=== PATIENT | male | born 1940 | race Two or more races ===

== ENCOUNTER 2016-10-08 07:39 | Day surgery (SDC) | payer MEDICARE, OTHER ==
[~2016-10-08] VITALS: Ht 162.6 cm; Wt 78.0 kg
[2016-10-08] VITALS (9 sets, daily range): BP systolic 121–150; BP diastolic 68–94
[~2016-10-08 07:39] MED LIST: ASPIR 8181 MG ORAL; AVODART0.5 MG ORAL; LR 1000ml 1,000 ML IVLG SCH; OMEPRAZOLE40 M1 ORAL; RANITIDINE HCL150 MG ORAL; STOOL SOFTENER250 MG PO; TAMSULOSIN HCL0.4 MG ORAL; TRICOR145 MG ORAL; UROXATRAL10 MG ORAL
--- NOTE | 2016-10-08 07:53 | Short Stay Surgery H&P ---
History of Present Illness History of Present Illness Chief Complaint History of GERDs, colon polyps/abdominal pains HPI Zane Alcantar is a 76 year old male who was admitted on for Abdominal Pain/colon polyps. Patient History Allergies: Coded Allergies: No Known Allergies (Unverified , 03/23/13) PAST MEDICAL HISTORY: (1) Hyperlipidemia Past Surgeries: Social History: Medication History Scheduled Aspirin* (Aspir 81*), 81 MG ORAL DAILY, (Reported) Dutasteride (Avodart), 0.5 MG ORAL DAILY, (Reported) Omeprazole (Omeprazole), 40 MG ORAL DAILY, (Reported) Ranitidine Hcl* (Zantac*), 300 MG ORAL DAILY, (Reported) Tamsulosin Hcl (Tamsulosin Hcl*), 0.4 MG ORAL BEDTIME, (Reported) Discontinued Medications Alfuzosin 10Mg (Uroxatral), 10 MG ORAL DAILY, (Reported) Discontinued Reason: Pt stopped taking med Docusate Sodium (Stool Softener), 250 MG PO DAILY, (Reported) Discontinued Reason: Pt stopped taking med Fenofibrate (Tricor), 145 MG ORAL DAILY, (Reported) Discontinued Reason: Pt stopped taking med Review of Systems Cardiovascular: Reports: no symptoms Respiratory: Reports: no symptoms Skeletal: Reports: no symptoms Gastrointestinal: Reports: gastro esophageal reflux disease Genitourinary: Reports: no symptoms Neurologic: Reports: no symptoms Endocrine: Reports: no symptoms Hematologic: Reports: no symptoms Physical Exam Skin: normal HENT: normal Heart: normal Lungs: normal Abdomen: normal Extremities: normal Genitourinary: normal Plan Plan of Care Upper and lower GI endoscopy Preop Interventions None. Summary of Findings See the reports. Final Diagnosis: Attestation Are the patient's medical conditions optimized for surgery? Attestation Response: yes SETH DOAN October 08, 2016 07:53
--- NOTE | 2016-10-08 07:54 | Pre-Procedure Note/Attestation ---
Pre-Procedure Note/Attestation Complete Prior to Procedure Planned Procedure: left Procedure Narrative: Endoscopic examination of the upper and lower GI. Indications for Procedure Pre-Operative Diagnosis: R/O Peptic ulcer/gastritis/colon polyp. Attestation I attest that I discussed the nature of the procedure; its benefits; risks and complications; and alternatives (and the risks and benefits of such alternatives ), prior to the procedure, with the patient (or the patient's legal parts counter representative). I attest that, if there was a reasonable possibility of needing a blood transfusion, the patient (or the patient's legal parts counter representative) was given the [place] [employer] [facility] standardized written summary, pursuant to the [place] Blood Safety Act ([place] Health and Safety Code # 1645, as amended). I attest that I re-evaluated the patient just prior to the surgery and that there has been no change in the patient's H&P, except as documented below: OLIMPIA,SAID October 08, 2016 07:54
[2016-10-08] MEDS ORDERED: LR 1000ml ONE (08:00)
[2016-10-08] MEDS ORDERED: Propofol 10mg/ml 20ml IV ONE (08:00)
--- NOTE | 2016-10-08 08:29 | Anethesia Preoperative Eval ---
Anesthesia Pre-op PMH/ROS General Date of Evaluation: October 08, 2016 Time of Evaluation: 08:15 Anesthesiologist: percy ASA Score: ASA 2 Mallampati Score Class I : Soft palate, uvula, fauces, pillars visible Class II: Soft palate, uvula, fauces visible Class III: Soft palate, base of uvula visible Class IV: Only hard plate visible Mallampati Classification: Class II Surgeon: anna Diagnosis: GRD, hx colon polyps Surgical Procedure: EGD,colonoscopy Anesthesia History: none Allergies: Coded Allergies: No Known Allergies (Unverified , 03/23/13) Past Medical History Gastrointestinal/Genitourinary: Reports: GERD, other - s/p choley Anesthesia Pre-op Phys. Exam Physician Exam Last Vital Signs Date Time Temp Pulse Resp B/P Pulse Ox O2 Delivery O2 Flow Rate FiO2 10/08/16 08:10 98.7 72 18 150/94 97 Room Air Airway Exam Mallampati Score: Class II Teeth: missing Anesthesia Pre-op A/P Risk Assessment & Plan Plan: propofol Status Change Before Surgery: Valentin Mcdonough MD October 08, 2016 08:29
--- NOTE | 2016-10-08 08:29 | Immediate Post-Op Evaluation ---
Immediate Post-Op Evalulation Immediate Post-Op Evalulation Date of Evaluation: October 08, 2016 Time of Evaluation: 09:00 IV Fluids: 500 Blood Pressure Systolic: 114 Blood Pressure Diastolic: 71 Pulse Rate: 60 Respiratory Rate: 20 O2 Sat by Pulse Oximetry: 100 Temperature (Fahrenheit): 97.1 Pain Score (1-10): 0 Nausea: No Vomiting: No Complications none Patient Status: awake, patent, none Hydration Status: adequate Valentin Brasher MD October 08, 2016 08:29
--- NOTE | 2016-10-08 08:31 | 48 Hour Post Anesthesia Eval ---
Post Anesthesia Evaluation Date of Evaluation: October 08, 2016 Time of Evaluation: 09:30 Blood Pressure Systolic: 130 0: 78 Pulse Rate: 63 Respiratory Rate: 18 Temperature (Fahrenheit): 98.7 O2 Sat by Pulse Oximetry: 97 Airway: patent Nausea: No Vomiting: No Pain Intensity: 0 Hydration Status: adequate Cardiopulmonary Status: stable Mental Status/LOC: patient returned to baseline Follow-up Care/Observations: n/a Post-Anesthesia Complications: tolerated well Follow-up care needed: ready to discharge Valentin Brasher MD October 08, 2016 08:31
[2016-10-08] MEDS ORDERED: LR 1000ml 1,000 ML IVLG SCH (08:44)
--- NOTE | 2016-10-08 08:48 | Endoscopy Procedure Note ---
Endoscopy Procedure Note Indication for Procedure: GERDs anad abdominal pains and history of colon polyp Procedures Performed: EGD - Small Hiatal Hernia otherwise completely normal upper GI endoscopy, biopsy was done per random from the gastric body., colonoscopy - Minimal internal hemorrhoids and highly redundant spastic colon with poor prep. A 3mm flat diminutive polypoid lesion removed by cold biopsy forceps from hepatic flexure. Exam was done upto the base of the cecum. Specimen: yes Pt Tolerated Procedure Well: Yes Estimated Blood Loss: none Anesthesiologist: Dr. Barlow Anesthesia: moderate sedation Medication Given: see anesthesia record Implant(s) used?: No 50 yrs or older w/o bx or poly: Yes 10yrs. F/U not recommended: Yes If not recommended, why?: 18 years or older w/prev. colo: No <3yrs. since last colonoscopy: No Med reason:<3 yrs.: System Reason:<3 yrs.: SETH DOAN October 08, 2016 08:48
--- NOTE | 2016-10-08 08:49 | Discharge Instructions ---
Discharge Instructions Discharge Instructions Follow up with: Make office visit after two weeks For Congestive Heart Failure Reminder Report to your physician any weight gain of 5 pounds or more in one week. SETH DOAN October 08, 2016 08:49
--- NOTE | 2016-10-08 11:45 | Operative Note - Dictated ---
PROCEDURE: Esophagogastroduodenoscopy with biopsy. PREOPERATIVE DIAGNOSES: 1. Abdominal pain. 2. History of gastroesophageal reflux, gastroesophageal reflux disease. POSTOPERATIVE DIAGNOSES: A small hiatal hernia, otherwise completely normal upper gastrointestinal endoscopy. Biopsy was taken per random from gastric body. MEDICATIONS USED: Per Dr. Barlow, anesthesiologist. INSTRUMENT: GIF Olympus upper gastrointestinal video endoscope. DESCRIPTION OF PROCEDURE: The patient after arriving endoscopy unit, was told about risks and benefits of the procedure, which he accepted and signed the informed consent. He was then put on the left lateral decubitus position. After adequate IV sedation, scope was gently passed through the cricopharyngeal area, was lodged into the upper esophagus, and gradually advanced towards gastroesophageal junction. The entire length of the esophagus looked normal. No evidence of varices, inflammatory process, ulceration, stricture, etc. was found. There was no evidence of Monroe's mucosa, however a small hiatal hernia was noted of no great significance. At this time, the scope was advanced into the stomach. Gastric cavity was distended with insufflation of air and gradually the areas of the fundus and the body and the antrum were examined in automatic coin machine mechanic fashion revealing no abnormality. The mucosa was normal. No polyps or tumors was found. A retroflexion maneuver was applied in the fundus, which did not reveal any pathology. Finally, the scope was gradually advanced toward the antrum and from there into the pylorus. First and second portion of duodenum were found to be completely normal. At this time, the scope was pulled back into the stomach. Gastric cavity was distended again and one random biopsy from the mid gastric body was obtained. Subsequently, the procedure was terminated. The patient tolerated the procedure well. Said Gayle Win DR: Enmanuel JOB#: [id number] CC:
--- NOTE | 2016-10-08 14:46 | Operative Note - Dictated ---
DATE OF OPERATION: 10/08/2016 PROCEDURE: Total colonoscopy with polypectomy. PREOPERATIVE DIAGNOSIS: History of colon polyp. POSTOPERATIVE DIAGNOSIS: Poor colonic preparation with extremely redundant hyperspastic colon. A 3 mm soft diminutive polypoid lesion was found over the hepatic flexure, which looked benign and removed with cold biopsy forceps. Examination was done up to the base of the cecum. MEDICATION USED: Per , anesthesiologist. INSTRUMENT: GIF Olympus video colonoscope. DESCRIPTION OF PROCEDURE: The patient after arriving to the endoscopy unit, was told about risks and benefits of the procedure, which he accepted and signed the informed consent. He was then put in the left lateral decubitus position. After adequate IV sedation, scope was gently passed through the anal area, which revealed evidence of nonsignificant, very small internal hemorrhoids and they were not friable. scope at this time, was retroflexed and the area of the rectum was examined carefully, which revealed normal findings. At this point, the scope was passed through rather hyperspastic redundant left colon, which was filled with liquidy stool signifying lack of adequate preparation. However, gradually the scope reached toward the splenic flexure. From there, it was guided into the transverse colon, reaching to the hepatic flexure, where incidentally a very small 2 to 3 mm soft polypoid lesion, which was consistent with possible diminutive polyp was encountered, which was removed with cold biopsy forceps and the specimen was sent to the pathology. Subsequently, the scope was passed into the right colon all the way to the base of the cecum and there was no other pathology found. At this point, within seven minutes the scope was gradually pulled out and re-evaluation of the colon did not reveal any other pathology. The patient tolerated the procedure well and left the endoscopy room in a good condition. Said Gayle Win DR: MATTHEW JOB#: [id number] CC:
== END 2016-10-08 10:00 | disposition home or self-care (01) ==
LOC: GAS 07:39
DX: R10.9 Unspecified abdominal pain (principal); K21.9 Gastro-esophageal reflux disease without esophagitis; K44.9 Diaphragmatic hernia without obstruction or gangrene; D12.3 Benign neoplasm of transverse colon; K64.8 Other hemorrhoids; K58.9 Irritable bowel syndrome, unspecified; Q43.8 Other specified congenital malformations of intestine; Z86.010 Personal history of colon polyps
CPT/HCPCS: 43239; 45380; 82962; J2704; J7120; 94003; 94150